=== PATIENT | male | born 1950 | race Caucasian/White ===

== ENCOUNTER 2023-11-14 22:07 | Emergency (ER) | payer MEDICARE, OTHER, SELFPAY ==
[2023-11-14] VITALS (7 sets, daily range): BP systolic 168–210; BP diastolic 80–95; PULSE 72–90; TEMP 36.5; O2SAT 95–98; BMI 25.8
--- NOTE | 2023-11-14 22:25 | ECG_ITS ---
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
--- NOTE | 2023-11-14 22:26 | ED.GENADUL1 ---
HPI HPI - General Adult General Chief complaint: Nausea/Vomiting/Diarrhea Stated complaint: nausea, pale, came from work not wc Time Seen by Provider: 11/14/23 22:13 Source: patient Mode of arrival: walk-in Limitations: no limitations History of Present Illness HPI narrative: 73-year-old male presents to the emergency department for dizziness and nausea and vomiting. He works in a hot factory and this started about an hour ago. He does not have any pain, no chest pain or abdominal pain. No hematemesis. He did not pass out. This has happened to him in the past and he was dehydrated. No recent fever and he felt fine earlier in the day. Related Data Home Medications ?Medication ?Instructions ?Recorded ?Confirmed acarbose 100 mg tablet mg 11/14/23 aspirin 81 mg capsule 81 mg PO DAILY 11/14/23 11/14/23 atorvastatin 40 mg tablet mg 11/14/23 dutasteride 0.5 mg capsule mg PO 11/14/23 empagliflozin 25 mg tablet mg 11/14/23 (Jardiance) famotidine 40 mg tablet mg 11/14/23 gabapentin 600 mg tablet mg 11/14/23 metformin 500 mg tablet mg 11/14/23 mifepristone 300 mg tablet (Korlym) mg PO 11/14/23 montelukast 10 mg tablet mg 11/14/23 omeprazole 40 mg capsule,delayed mg 11/14/23 release semaglutide 2 mg/dose (8 mg/3 mL) mg subcut 11/14/23 subcutaneous pen injector (Ozempic) Previous Rx's ?Medication ?Instructions ?Recorded ondansetron 4 mg disintegrating 4 mg PO Q6H PRN nausea and 11/14/23 tablet vomiting #20 tabs Allergies Allergy/AdvReac Type Severity Reaction Status Date / Time etodolac Allergy Unknown Verified 11/14/23 22:23 Penicillins Allergy Unknown Verified 11/14/23 22:22 Sulfa (Sulfonamide Allergy Unknown Verified 11/14/23 22:25 Antibiotics) Opioid HPI Opioid Management Most Recent Opioid Data: No Data to Display Review of Systems ROS Narrative A ten point review of systems is negative except as noted above. Exam Narrative Exam Narrative: Nurses note and vital signs reviewed and patient is not hypoxic. General: The patient appears well and in no apparent distress. Patient is resting comfortably on cart. Skin: Warm, dry, minimal pallor noted. There is no rash noted. Head: Normocephalic, atraumatic Eye: Normal conjunctiva, no drainage Ears, Nose, Mouth, and Throat: oral mucosa is moist. Nares patent. Cardiovascular: Regular Rate and Rhythm Respiratory: Patient is in no distress, no accessory muscle use, lungs are clear to auscultation, no wheezing, rales or rhonchi Back: non-tender GI: Soft and nontender Musculoskeletal: The patient has no evidence of calf tenderness, no pitting edema, symmetrical pulses noted bilaterally Neurological: A&O, normal speech Psychiatric: Cooperative Constitutional Vital Signs, click to edit/add: Last Vital Signs Temp 97.7 F 11/14/23 22:24 Pulse 77 11/14/23 23:21 Resp 16 11/14/23 23:21 BP 178/83 H 11/14/23 23:21 Pulse Ox 97 11/14/23 23:21 O2 Del Method Room Air 11/14/23 23:21 Course Vital Signs Vital signs: Vital Signs Pulse Rate 90 11/14/23 22:11 Respiratory Rate 18 11/14/23 22:11 Blood Pressure 210/95 H 11/14/23 22:11 Pulse Oximetry 98 11/14/23 22:11 Oxygen Delivery Method Room Air 11/14/23 22:11 Temperature 97.7 F 11/14/23 22:24 Pulse Rate 77 11/14/23 23:21 Respiratory Rate 16 11/14/23 23:21 Blood Pressure 178/83 H 11/14/23 23:21 Pulse Oximetry 97 11/14/23 23:21 Oxygen Delivery Method Room Air 11/14/23 23:21 Medical Decision Making MDM Narrative Medical decision making narrative: His workup is negative and he feels much improved after receiving IV fluids and Zofran. He is discharged home with a prescription for Zofran. Treatment diagnosis and follow-up were discussed with the patient. Differential Diagnosis Differential Diagnosis: Gastroenteritis, dehydration, acute kidney injury, electrolyte abnormality Lab Data Lab results reviewed: Yes I reviewed the patient's lab results Labs: Lab Results 11/14/23 Range/Units 22:20 WBC 8.9 (4.0-11.0) 10^3/uL RBC 4.65 L (4.70-6.10) 10^6/uL Hgb 14.1 (14.0-18.0) g/dL Hct 41.2 L (42.0-54.0) % MCV 88.6 (80.0-94.0) fL MCH 30.3 (25.9-34.0) pg MCHC 34.2 (29.9-35.2) g/dL RDW 13.1 (11.0-15.0) % Plt Count 299 (150-450) 10^3/uL MPV 11.4 (9.5-13.5) fL Neut % (Auto) 61.8 (43.0-75.0) % Lymph % (Auto) 27.3 (20.5-60.0) % Sebastian % (Auto) 8.3 (1.7-12.0) % Eos % (Auto) 1.9 (0.9-7.0) % Baso % (Auto) 0.4 (0.2-2.0) % Neut # (Auto) 5.5 (1.4-6.5) 10^3/uL Lymph # (Auto) 2.4 (1.2-3.8) 10^3/uL Sebastian # (Auto) 0.7 (0.3-0.8) 10^3/uL Eos # (Auto) 0.2 (0.0-0.7) 10^3/uL Baso # (Auto) 0.0 (0.0-0.1) 10^3/uL Abs Immat Gran (auto) 0.03 (0.00-0.03) 10^3/uL Imm/Tot Granulo (auto) 0.3 (0.0-0.5) % Sodium 142 (136-145) mmol/L Potassium 3.1 L (3.5-5.1) mmol/L Chloride 103 (98-107) mmol/L Carbon Dioxide 24.6 (21.0-32.0) mmol/L Anion Gap 17.5 BUN 20.0 H (7.0-18.0) mg/dL Creatinine 0.96 (0.70-1.30) mg/dL Est GFR ( Amer) >60 (>=60) Est GFR (Non-Af Amer) >60 (>=60) BUN/Creatinine Ratio 20.8 Glucose 243 H (74-106) mg/dL Calcium 9.7 (8.5-10.1) mg/dL Troponin I High Sens 4.3 (4.0-76.1) pg/mL ECG Data Attestation: I personally reviewed and interpreted this ECG as follows: (EKG on my interpretation shows normal sinus rhythm with a rate of 78 and no acute changes) Discharge Plan Discharge Stand Alone Forms: Portal Instructions Chief Complaint: Nausea/Vomiting/Diarrhea Clinical Impression: Nausea and vomiting Patient Disposition: Home, Self-Care Time of Disposition Decision: 23:28 Condition: Good Mode of Transportation: Private Vehicle Prescriptions / Home Meds: New ondansetron 4 mg tablet,disintegrating 4 mg PO Q6H PRN (Reason: nausea and vomiting) Qty: 20 0RF No Action acarbose 100 mg tablet Ozempic 2 mg/dose (8 mg/3 mL) pen injector SUBCUT atorvastatin 40 mg tablet famotidine 40 mg tablet dutasteride 0.5 mg capsule PO mifepristone [Korlym] 300 mg tablet PO Jardiance 25 mg tablet aspirin 81 mg capsule 81 mg PO DAILY metformin 500 mg tablet gabapentin 600 mg tablet omeprazole 40 mg capsule,delayed release(DR/EC) montelukast 10 mg tablet Print Language: Luxembourgish Instructions: Acute Nausea and Vomiting (ED) Referrals: DIANA LOBATO MD [Primary Care Provider] - 1 week
[2023-11-14 22:37] LABS: Basophils Percent Auto 0.4 % (0.2-2.0); Eosinophils Absolute Auto 0.2 10^3/uL (0.0-0.7); Eosinophils Percent Auto 1.9 % (0.9-7.0); Hematocrit 41.2 % (42.0-54.0); Hemoglobin 14.1 g/dL (14.0-18.0); Immature Granulocytes Abs Auto 0.03 10^3/uL (0.00-0.03); Immature Granulocytes Pct Auto 0.3 % (0.0-0.5); Lymphocytes Absolute Auto 2.4 10^3/uL (1.2-3.8); Lymphocytes Percent Auto 27.3 % (20.5-60.0); Mean Corpuscular HGB Conc 34.2 g/dL (29.9-35.2); Mean Corpuscular Hemoglobin 30.3 pg (25.9-34.0); Mean Corpuscular Volume 88.6 fL (80.0-94.0); Mean Platelet Volume 11.4 fL (9.5-13.5); Monocytes Absolute Auto 0.7 10^3/uL (0.3-0.8); Monocytes Percent Auto 8.3 % (1.7-12.0); Neutrophils Absolute Auto 5.5 10^3/uL (1.4-6.5); Neutrophils Percent Auto 61.8 % (43.0-75.0); Platelet Count 299 10^3/uL (150-450); Red Blood Count 4.65 10^6/uL (4.70-6.10); Red Cell Distribution Width 13.1 % (11.0-15.0); White Blood Count 8.9 10^3/uL (4.0-11.0)
[2023-11-14] MEDS: ONDANSETRON PF 4 MG/2 ML VIAL IV (22:38)
[2023-11-14] MEDS: 0.9 % SODIUM CHLORIDE 1,000 ML 1000 ML IV (22:38)
[2023-11-14 22:54] LABS: Anion Gap 17.5; BUN Creatinine Ratio 20.8; Calcium 9.7 mg/dL (8.5-10.1); Carbon Dioxide 24.6 mmol/L (21.0-32.0); Chloride 103 mmol/L (98-107); Estimated GFR (African America >60 (>=60); Estimated GFR (Non-African Ame >60 (>=60); Glucose 243 mg/dL (74-106); Potassium 3.1 mmol/L (3.5-5.1); Sodium 142 mmol/L (136-145); Troponin I High Sensitivity 4.3 pg/mL (4.0-76.1)
[2023-11-14] MEDS: ONDANSETRON 4 MG RAPDIS TABLET SL (23:49)
--- NOTE | 2023-11-14 23:51 | CT_ITS ---
The [address] [address] Patient Name: TING BLAND MRN: [id number] date: 1950 Sex: M Assigned Patient Location: ER Current Patient Location: Accession/Order Number: [id number] Exam Date: 11/14/2023 23:59 Report Date: 11/15/2023 00:56 At the request of: ANSLEY FLYNN Procedure: CT head/brain wo con INDICATION: 73 years old; Male. Dizziness. TECHNIQUE: CT Head (ax/cor/sag reformats). Ionizing radiation dose reduced via iterative reconstruction/FBP blend and body size kV/mA adjustment. Comparison: None FINDINGS: POSTOPERATIVE CHANGES: None. BRAIN PARENCHYMA: No intraparenchymal or extra-axial hemorrhage. No mass effect. No midline shift or herniation. Normal ramos/white differentiation. VENTRICLES/EXTRA-AXIAL SPACES: Widened but within normal limits for patient's age. SINUSES/MASTOIDS: Sinuses are clear although the maxillary sinuses are not completely included. Mastoids and middle ears are clear. MSK: No displaced or depressed calvarial fracture. OTHER: No hyperdense intraluminal thrombus. Vascular calcifications are present in the anterior and posterior circulation. CT/CT head/brain wo con IMPRESSION: 1. No acute intracranial abnormalities. No hemorrhage or mass effect. If there is concern for acute infarction, recommend MRI including diffusion imaging. 2. Vascular calcification. Electronically authenticated by: BRENNA GONSALEZ Date: 11/15/2023 00:56
[2023-11-15] MEDS: MECLIZINE HCL 12.5 MG TABLET 25 MG PO (01:19)
[2023-11-15 01:58] VITALS: BP 182/93; PULSE 99; O2SAT 18
== END 2023-11-15 02:44 | disposition home or self-care (01) ==
PROVIDERS: Emergency Provider Emergency Medicine; PCP Internal Medicine
DX: R11.2 Nausea with vomiting, unspecified (principal); Z79.82 Long term (current) use of aspirin; Z79.899 Other long term (current) drug therapy; Z79.84 Long term (current) use of oral hypoglycemic drugs
CPT/HCPCS: 36415; 70450; 80048; 84484; 85025; 93005; 96361; 96374; 99285